=== PATIENT | female | born 1945 | race Caucasian/White ===

== ENCOUNTER 2017-12-07 10:00 | Inpatient (IN) | payer MEDICARE, OTHER ==
[~2017-12-07] VITALS: Ht 172.7 cm; Wt 90.9 kg
--- NOTE | ~2017-12-07 | OP ---
PATIENT NAME: AUDREY BURNHAM MEDICAL RECORD: [id number] :43 LOCATION:[id number] ADMISSION DATE:12/07/17 SURGEON: AMANDA TORREZ MD DATE OF OPERATION: 12/09/2017 PREOPERATIVE DIAGNOSIS: Right trimalleolar ankle fracture. POSTOPERATIVE DIAGNOSIS: Right trimalleolar ankle fracture. PROCEDURE: Open reduction and internal fixation of medial malleolus and lateral malleolus of the right ankle. SURGEON: Amanda Torrez MD ANESTHESIA: General. INTRAOPERATIVE COMPLICATIONS: None. SUMMARY OF PATHOLOGIC FINDINGS: Displaced medial and lateral malleolus, consistent with preoperative radiographs. IMPLANTS USED: [employer] plating system for the distal fibula and cannulated screws from [employer] as well. OPERATIVE SUMMARY IN DETAIL: After obtaining the appropriate preoperative orthopaedic surgery consent as well as anesthetic consultation, evaluation, and clearance, the patient was brought to the operating room and placed on the operating table in the supine position. After general laryngeal mask was administered, tourniquet was placed about the proximal aspect of the right lower extremity. The right lower extremity was then prepped and draped in routine sterile fashion. The leg was elevated, exsanguinated, and the tourniquet was inflated to 350 mmHg. Incision was made from the lateral malleolar tip to above the fracture line. Dissection was then carried down to the fracture itself. All interposed fracture hematoma elements were removed as well as the periosteum. The fracture was then reduced with bone reduction forceps and held in place while the appropriate size plate was then affixed to this under fluoroscopic guidance. Combination of both compression and locking screws was utilized to gain internal fixation of the fibula. Having completed this, guidewires were percutaneously placed through the inferior tip of the medial malleolus as the reduction was excellent in AP and lateral planes. Two size #40 long threaded compression cannulated screws were placed in the medial malleolus again on fluoroscopic guidance. Having completed this, AP and lateral views were taken and submitted for radiologist's review. The posterior malleolar fracture had reduced nicely. Wound was copiously irrigated and closed with #1 Vicryl, 2-0 Vicryl, and skin lorelei. Sterile dressings were applied. Tourniquet was deflated. Posterior L&U splint was applied. The patient was awakened and taken to recovery room in stable condition. All final needle and sponge counts were correct. TRANSINT:[id number] Voice Confirmation ID: [id number] DOCUMENT ID: [id number] OPERATIVE REPORT [id number] AUDREY BURNHAM MD, AMANDA GILLIAM at 1356 CC: [id number] DICTATION DATE: 12/09/171721 PORTAINER OPERATOR: 12/09/17 175 DIS IN 12/11/17 [place] [id number] [place] [id number]
[2017-12-07] MEDS ORDERED: NORVASC5 MG PO (10:11)
[2017-12-07] MEDS ORDERED: BYSTOLIC10 MG PO (10:11)
[2017-12-07] MEDS ORDERED: SYNTHROID100 MCG PO (10:12)
[2017-12-07] MEDS ORDERED: CYMBALTA20 MG PO (10:12)
[2017-12-07] MEDS ORDERED: BUTALBITAL-ASP-1 CAP PO (10:12)
[2017-12-07] MEDS ORDERED: ZANTAC150 MG PO (10:13)
[2017-12-07 11:35] LABS: BASOPHILS 0.7 % (0-2); EOSINOPHILS 5.6 % (0-7); HEMATOCRIT 37.2 % (36.0-48.0); HEMOGLOBIN 12.4 g/dL (12-16); IMMATURE GRANULOCYTES 0.3 % (0-5); LYMPHOCYTES 22.6 % (15-50); MCH 31.6 pg (26.0-34.0); MCHC 33.3 g/dL (31.0-37.0); MCV 94.7 fL (80.0-100.0); NEUTROPHILS 64.8 % (40-80); PLATELET COUNT 243 10x3/uL (130-400); RBC 3.93 10x6/uL (4.00-5.40); RDW 13.3 % (11.5-14.5); WBC 7.6 10x3/uL (4.8-10.8)
[2017-12-07 11:43] LABS: INR 0.98 (0.85-1.17); PROTIME 12.6 SECONDS (11.6-15.0)
[2017-12-07 11:49] LABS: ALBUMIN 3.5 g/dL (3.4-5.0); ALKALINE PHOSPHATASE 129 U/L (46-116); ALT (SGPT) 18 U/L (10-68); BILIRUBIN - TOTAL 0.24 mg/dL (0.2-1.3); CALC OSMOLALITY 285 mosm/kg (275-300); CALCIUM 9.2 mg/dL (8.5-10.1); CHLORIDE - SERUM 109 mmol/L (98-107); CREATININE - SERUM 0.9 mg/dL (0.6-1.3); GLUCOSE 101 mg/dL (74-106); POTASSIUM - SERUM 4.2 mmol/L (3.5-5.1); PROTEIN - SERUM 6.7 g/dL (6.4-8.2); SODIUM 143 mmol/L (136-145); UREA NITROGEN 15 mg/dL (7-18); eGFR NON AFRICAN AMERICAN 65 mL/min (90-120)
[2017-12-07 11:52] LABS: CREATINE KINASE 56 UL (21-215); TROPONIN-I < 0.017 ng/mL (0.000-0.060)
[2017-12-07 13:43] VITALS: BP 146/58; BMI 30.4
[2017-12-07 16:02] VITALS: BP 116/51
[2017-12-07 19:47] VITALS: BP 123/57
[2017-12-07 23:37] VITALS: BP 124/64
[2017-12-08 03:39] VITALS: BP 137/64
[2017-12-08 05:10] LABS: BASOPHILS 0.8 % (0-2); EOSINOPHILS 7.3 % (0-7); HEMATOCRIT 36.3 % (36.0-48.0); HEMOGLOBIN 11.6 g/dL (12-16); IMMATURE GRANULOCYTES 0.3 % (0-5); LYMPHOCYTES 26.6 % (15-50); MEAN PLATELET VOLUME 10.4 fL (7.4-10.4); MONOCYTES 9.1 % (2-11); NEUTROPHILS 55.9 % (40-80); PLATELET COUNT 233 10x3/uL (130-400); RBC 3.74 10x6/uL (4.00-5.40); RDW 13.6 % (11.5-14.5); WBC 7.6 10x3/uL (4.8-10.8)
[2017-12-08 05:31] LABS: MCV 97.1 fL (80.0-100.0)
[2017-12-08 05:34] LABS: INR 1.06 (0.85-1.17); PROTIME 13.4 SECONDS (11.6-15.0)
[2017-12-08 05:35] LABS: CALCIUM 8.7 mg/dL (8.5-10.1); CREATININE - SERUM 0.9 mg/dL (0.6-1.3)
[2017-12-08 08:20] VITALS: BP 118/58
[2017-12-08 10:05] VITALS: Ht 172.7 cm; Wt 90.9 kg
[2017-12-08 12:06] VITALS: BP 145/58
[2017-12-08 16:41] VITALS: BP 150/64
[2017-12-08 21:09] VITALS: BP 161/60
[2017-12-09 04:35] VITALS: BP 185/87
[2017-12-09 08:25] VITALS: BP 152/65; BP 180/70
[2017-12-09 11:57] VITALS: BP 176/78
[2017-12-09 18:00] VITALS: BP 185/82
[2017-12-09 22:40] VITALS: BP 165/85
[2017-12-10 01:14] VITALS: BP 154/84
[2017-12-10 04:42] VITALS: BP 148/74
[2017-12-10 08:00] VITALS: BP 147/60
[2017-12-10 11:39] VITALS: BP 149/67
[2017-12-10 16:49] VITALS: BP 144/66
[2017-12-10 20:19] VITALS: BP 144/73
[2017-12-11 00:20] VITALS: BP 154/74
[2017-12-11 08:33] VITALS: BP 164/67
[2017-12-11] MEDS ORDERED: HYDROCODONE-APA1 TAB PO (10:58)
[2017-12-11] MEDS ORDERED: ELIQUIS2.5 MG PO (10:58)
[2017-12-11 12:22] VITALS: BP 137/53
== END 2017-12-11 13:25 | DRG 494 ==
LOC: D.ER 10:00 → D.MS 12:21 → D.EDHOLD 12:21 → D.MS 13:11
PROVIDERS: Family Medicine; Orthopaedic Surgery
PROC: 0QSJ04Z Reposition Right Fibula with Internal Fixation Device, Open Approach (ICD-10-PCS; 2017-12-09)
PROC: 0QSG04Z Reposition Right Tibia with Internal Fixation Device, Open Approach (ICD-10-PCS; principal; 2017-12-09 11:45)
DX: S82.851A Displaced trimalleolar fracture of right lower leg, initial encounter for closed fracture (principal); W01.0XXA Fall on same level from slipping, tripping and stumbling without subsequent striking against object, initial encounter; K21.9 Gastro-esophageal reflux disease without esophagitis; I10 Essential (primary) hypertension; M19.90 Unspecified osteoarthritis, unspecified site; Z85.850 Personal history of malignant neoplasm of thyroid